=== PATIENT | female | born 1955 | race Caucasian/White ===

== ENCOUNTER 2018-04-12 11:49 | Inpatient (IN) | payer OTHER ==
[~2018-04-12] VITALS: Ht 165.1 cm; Wt 83.2 kg
[~2018-04-12 11:49] MED LIST: CEFAZOLIN 1 GM/50 ML (PMX) 50 ML IVPB SCH; SOD CHLORIDE 0.9% 1,000 ML IV ONE; TRIA1CAP44
[2018-04-13] VITALS (17 sets, daily range): BP systolic 114–155; BP diastolic 62–86; PULSE 66–79; RESP 15–28; Ht 165.1 cm; Wt 83.2 kg
[2018-04-13] MEDS ORDERED: GLYCOPYRROLATE 0.4 MG INJ ONE (07:00)
[2018-04-13] MEDS ORDERED: DESFLURANE 15 MIN ONE (07:00)
[2018-04-13] MEDS ORDERED: NEOSTIGMINE 3 MG/3 ML SYRINGE ONE (07:00)
[2018-04-13] MEDS ORDERED: AMLO-147 PO (12:01)
[2018-04-13] MEDS ORDERED: METH-493 PO (12:03)
--- NOTE | 2018-04-13 15:15 | PREAC ---
Date/Time of Note Date/Time of Note DATE: 04/13/18 TIME: 15:14 Anesthesia Eval and Record Evaluation Time Pre-Procedure Interview DATE: 04/13/18 TIME: 15:14 Age 62 Sex female NPO: 8 hrs Preoperative diagnosis L breast mass Planned procedure L radical mastectomy Past Medical History Past Medical History: Includes Cardio: HTN Endo: Hyperthyroid GI: Obesity Surgery & Anesthesia Issues No known issue Meds Anticoagulation: No Beta Earl within 24 hr: No Reason Beta Earl not given: Pt. not on B-Earl Reported Medications Methimazole* (Methimazole*) 5 Mg Tablet, 5 MG PO DAILY, TAB 04/13/18 Amlodipine Besylate* (Amlodipine Besylate*) 10 Mg Tablet, 10 MG PO DAILY, #30 TAB 04/13/18 Discontinued Reported Medications Triamterene-HCTZ (Triamterene-HCTZ) 1 Cap Capsule 07/08/10 Current Medications Influenza Virus Vaccine Quadrival (Fluzone) 0.5 ml ONCE ONCE IM* ; Start 04/14/18 at 10:00; Stop 04/14/18 at 10:01 Meds reviewed: Yes Allergies Coded Allergies: No Known Allergy (Verified , 04/13/18) Allergies Reviewed: Yes Labs/Studies Labs Reviewed: Reviewed by anesthesiologist test: Negative Studies: ECG Pre-procedure Exam Airway: Adequate mouth opening, Adequate thyromental dist Mallampati: Mallampati II Teeth: Normal Lung: Normal Heart: Normal ASA Physical Status ASA physical status: 3 Emergency: None Planned Anesthetic General/MAC: ETT Pre-operative Attestations Prior to commencing anesthesia and surgery, the patient was re-evaluated, there was verification of: *The patient's identity *The results of appropriate recent lab work and preoperative vital signs *The above evaluation not changing prior to induction *Anesthetic plan, risk benefits, alternative and complications discussed with patient/family; questions answered; patient/family understands, accepts and wishes to proceed. RENAN ROBERTS Apr 13, 2018 15:15
[2018-04-13] MEDS ORDERED: MIDAZOLAM 1 MG/ML 2 ML INJ ONE (15:16)
[2018-04-13] MEDS ORDERED: FENTAnyl 50 MCG/ML VIAL ONE (15:27)
[2018-04-13] MEDS ORDERED: ALBUTEROL 0.083% (NEB) 2.5 MG/3 ML AMP HHN PRN (15:30)
[2018-04-13] MEDS ORDERED: MEPERIDINE 25 MG INJ IV PRN (15:30)
[2018-04-13] MEDS ORDERED: FENTAnyl 50 MCG/ML VIAL IV PRN ×2 (15:30)
[2018-04-13] MEDS ORDERED: DIPHENHYDRAMINE 50 MG INJ IV PRN (15:30)
[2018-04-13] MEDS ORDERED: HYDROmorphONE 1 MG/5 ML IV SYRINGE IV PRN ×3 (15:30)
[2018-04-13] MEDS ORDERED: METOCLOPRAMIDE 10 MG INJ IV PRN (15:30)
[2018-04-13] MEDS ORDERED: ONDANSETRON 4 MG INJ IV PRN ×2 (15:30→17:00)
[2018-04-13] MEDS ORDERED: CEFAZOLIN 1 GM INJ ONE (15:47)
[2018-04-13] MEDS ORDERED: DEXAMETHASONE 4 MG/ML 1 ML INJ ONE (15:47)
[2018-04-13] MEDS ORDERED: ONDANSETRON 4 MG INJ ONE (15:47)
[2018-04-13] MEDS ORDERED: SUGAMMADEX SODIUM 200 MG/2 ML VIAL IV ONE (15:47)
[2018-04-13] MEDS ORDERED: ROCURONIUM 50 MG INJ ONE (15:47)
[2018-04-13] MEDS ORDERED: SUCCINYLCHOLINE CHLORIDE 100 MG/5 ML SYG IV ONE (15:47)
[2018-04-13] MEDS ORDERED: LIDOCAINE 100 MG SYRINGE ONE (15:47)
[2018-04-13] MEDS ORDERED: PROPOFOL 20 ML ONE (15:47)
--- NOTE | 2018-04-13 16:32 | SIPON ---
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
--- NOTE | 2018-04-13 16:38 | PAC ---
Date/Time of Note Date/Time of Note DATE: 04/13/18 TIME: 16:38 Post-Anesthesia Notes Post-Anesthesia Note Last documented vital signs Vital Signs Date Temp Pulse Resp B/P (MAP) Pulse Ox O2 O2 Flow FiO2 Time Delivery Rate 04/13/18 98.6 16:36 Activity: WNL Respiratory function: WNL Cardiovascular function: WNL Mental status: Baseline Pain reasonably controlled: Yes Hydration appropriate: Yes Nausea/Vomiting absent: Yes RENAN ROBERTS Apr 13, 2018 16:38
[2018-04-13] MEDS ORDERED: morphine 2 MG INJ IV PRN (17:00)
[2018-04-13] MEDS: D5W-0.45 NACL + KCL 20 MEQ 1,000 ML IV SCH (18:53)
--- NOTE | 2018-04-13 19:15 | OPR ---
DATE OF OPERATION: 04/13/2018 PREOPERATIVE DIAGNOSIS: Multicentric and locally advanced left breast cancer. POSTOPERATIVE DIAGNOSIS: Multicentric and locally advanced left breast cancer. OPERATION PERFORMED: Left modified radical mastectomy. ANESTHESIA: General. ANESTHESIOLOGIST: Moe Trujillo MD SURGEON: Ted Saagstume MD [employer] ROBOTICIST: Jozef Stewart MD INDICATIONS FOR PROCEDURE: The patient is an unfortunate 62-year-old female who underwent screening mammography and ultrasonography and was found to have suspicious lesions in 2 different sites in the left breast. Core biopsy confirmed cancer in both lesions. She also underwent biopsy of enlarged le ft axillary lymph node which was also positive for metastatic disease. She was counseled as to need for left modified radical mastectomy. She consented and was scheduled for surgery. DESCRIPTION OF PROCEDURE: The patient was brought to the operating theater, placed under general ane sthesia. The left breast and axillary region were prepped and draped in usual sterile fashion. Plan rhett elliptical incision was demarcated widely around the nipple areolar complex and significant amoun t of the overlying skin of the breast. The incision was carried out with 15-blade scalpel. Subcutan eous tissue was dissected with cautery. The skin edges were then elevated with Allis Matt clamps. Skin flaps were then created using cautery, first superiorly to the clavicle, then medially to the st ernal border, inferiorly to the inframammary fold and then laterally until the latissimus dorsi muscl e was identified throughout its course. Mastectomy then took place from medial to lateral using caut ivana at the border of the pectoralis major muscle, the pectoralis minor muscle was identified. Clavip ectoral fascia was incised with blunt dissection along the chest wall. The long thoracic nerve was i dentified and kept out of harm's way. More superiorly, the axillary vein was identified, dissected f rom medial to lateral. The thoracodorsal neurovascular bundle was identified, dissected throughout i ts course and kept out of harm's way. Node bearing tissue between the 2 nerves was then resected usi ng the LigaSure device. Final connective tissue attachments to latissimus dorsi muscle were transect ed with cautery. Specimen was oriented, sent for permanent pathologic analysis. Dr. Sagastume inspected the axillary region and appeared to be some additional enlarged lymph nodes that were separately res ected using LigaSure device and sent for permanent pathologic analysis. The wound was then irrigated . Minimal bleeding was controlled with cautery. Two #10 flat Luis Eduardo-Oconnor drains were then brought through the left mid axillary line. One was cut to size and laid within the axilla. The other was cut to size and laid over the pectoralis major muscle. Both drains were secured in place with 2-0 ny yadi sutures in standard fashion. The skin was then reapproximated with deep dermal layer of 4-0 Vicr yl sutures, followed by final skin approximation with skin eugenie. The patient tolerated procedure well. The estimated blood loss was approximately 50 mL. There were no complications. The patient w as transported in stable condition to the recovery room where circumferential compression dressing wa s applied. Dictated By: TED SAGASTUME MD TL/CAMERON Conf#: [id number] DID#: [id number] CC: REDDY SEARS MD;*EndCC*
[2018-04-13] MEDS: ACETAMINOPHEN 1000MG/100ML IV 100 ML IVPB PRN (20:04)
--- NOTE | 2018-04-13 21:50 | HP ---
DATE OF ADMISSION: 04/13/2018 CHIEF COMPLAINT AND HISTORY OF PRESENT ILLNESS: The patient is a 62-year-old female with a history o f hypertension and hyperthyroidism and is also status post total abdominal hysterectomy and bilateral salpingectomy. She was seen by Dr. Kumar as an outpatient for abnormal mammogram. The patient was noted to have a suspicious lesion in the left breast. Subsequently underwent ultrasound-guided core biopsy, which revealed probable intraductal papilloma; however, recommendation of the pathologist was for complete excision. The patient was brought in to hospital today and underwent excisional biopsy of the left breast. Due to postoperative pain, the patient is being admitted for further evaluation and management. The patient denied any history of headache, dizziness, syncope. No history of feve r or chills. No history of nausea, vomiting. No history of abdominal pain. No history of focal wea kness. No history of cough. REVIEW OF SYSTEMS: A total of 10 systems reviewed, all pertinent positive and negative findings have been described in HPI. Rest of the systems unremarkable. PAST MEDICAL HISTORY: As stated above. In addition, the patient also has history of . PAST SURGICAL HISTORY: None. FAMILY HISTORY: The patient's mother had uterine cancer. One of the sisters has breast cancer. SOCIAL HISTORY: No smoking, no alcohol. PHYSICAL EXAMINATION: GENERAL: The patient is awake, alert, fairly oriented. VITAL SIGNS: Temperature 98.6, pulse 69, respirations 17, blood pressure 140/75, O2 saturation 97% o n room air. HEENT: No eye discharge or redness. Conjunctivae and lids are normal. Oropharynx clear. NECK: Supple. No mass or thyromegaly. CHEST: Fairly clear. CARDIOVASCULAR: S1, S2 normal, no murmur. ABDOMEN: Soft, nondistended and nontender. EXTREMITIES: No leg edema. NEUROLOGIC: The patient is awake, alert, fairly oriented with no gross focal deficit. LABORATORY DATA: Pending. IMPRESSION: 1. Probable left breast intraductal papilloma, status post localized excisional biopsy of the left b reast. 2. Hypertension. 3. Hyperthyroidism. PLAN: The patient admitted on medical floor. The patient started on clear liquid diet, which will b e advanced as tolerated. The patient will be given IV fluid and for pain control, the patient will b e started on Tylenol, [place] and IV morphine depending upon severity of the pain. Will resume Norvasc for hypertension and methimazole for hyperthyroidism. The patient will have SCD for DVT prophylaxis . If patient continues to do well, she will be discharged home tomorrow. Dictated By: REDDY [place]/CAMERON Conf#: [id number] DID#: [id number] CC: DONNA KUMAR MD;*EndCC*
[2018-04-14] MEDS ORDERED: morphine SULFATE/PF (2 MG/2 ML) SYG IV PRN (00:11)
[2018-04-14] MEDS: D5W-0.45 NACL + KCL 20 MEQ 1,000 ML IV SCH ×2 (00:32→02:16)
[2018-04-14 00:33] VITALS: BP 128/70; PULSE 74; RESP 20
[2018-04-14] MEDS: ACETAMINOPHEN 1000MG/100ML IV 100 ML IVPB PRN ×2 (02:08→10:49)
[2018-04-14] MEDS ORDERED: METHIMAZOLE 5 MG TAB PO SCH ×2 (07:20→09:00)
[2018-04-14 08:00] VITALS: BP 125/70; PULSE 88; RESP 18
[2018-04-14] MEDS ORDERED: AMLODIPINE 10 MG TAB PO SCH (09:00)
[2018-04-14 14:00] VITALS: BP 120/77; PULSE 65; RESP 18
--- NOTE | 2018-04-14 14:45 | DS ---
Date/Time of Note Date/Time of Note DATE: 04/14/18 TIME: 14:44 Discharge Summary Admission/Discharge Info Admit Date/Time Apr 13, 2018 at 11:32 Discharge Date/Time Discharge Diagnosis 1. Probable left breast intraductal papilloma, status post localized excisional biopsy of the left breast. 2. Hypertension. 3. Hyperthyroidism. Patient Condition: Stable Hospital Course stable Home Meds Active Scripts Docusate Sodium* (Colace*) 100 Mg Capsule, 100 MG PO DAILY, #20 CAP Prov:[facility] 04/14/18 Hydrocodone/Acetaminophen ([place] 5-325 Tablet) 1 Each Tablet, 1 EACH PO Q6 for 14 Days, TAB Prov:[facility] 04/14/18 Reported Medications Methimazole* (Methimazole*) 5 Mg Tablet, 5 MG PO DAILY, TAB 04/13/18 Amlodipine Besylate* (Amlodipine Besylate*) 10 Mg Tablet, 10 MG PO DAILY, #30 TAB 04/13/18 Primary Care Provider Not On Staff Doctor Pending Labs Laboratory Tests Test 04/14/18 07:37 Lab Scanned Report [facility] [id number] [facility] Apr 14, 2018 14:45
--- NOTE | 2018-04-14 14:56 | PDOCDIS ---
Discharge Instructions DIAGNOSIS Discharge Diagnosis 1. Probable left breast intraductal papilloma, status post localized excisional biopsy of the left breast. 2. Hypertension. 3. Hyperthyroidism. CONDITION [id number] Patient Condition: [id number] Stable HOME CARE INSTRUCTIONS: [id number] Diet Instructions: [id number] Regular ACTIVITY: [id number] Activity Restrictions: [id number] Slowly Increase Activity Rest between Activity Avoid heavy lifting Do not Drive Do not operate Machinery Avoid Heavy Housework [id number] Bathing Restrictions: [id number] Sponge Bath FOLLOW UP/APPOINTMENTS Follow-up Plan FU with PMD x 1 week FU with surgery as recommended Call 911 or go to the nearest hospital if symptoms get worse- patient verbalized understanding discharge instructions. Plan dw Dr Ortega /staff [facility] Apr 14, 2018 14:56
[2018-04-14] MEDS ORDERED: HYDR-4011 PO (14:59)
[2018-04-14] MEDS ORDERED: DOCU-144 PO (14:59)
--- NOTE | 2018-04-14 19:35 | PN ---
DATE: 04/14/2018 Postop day #1 status post left breast modified radical mastectomy for invasive cancer of left breast multicentric. SUBJECTIVE: No complaint. Pain is under control. OBJECTIVE: GENERAL: Awake, alert, oriented x3. VITAL SIGNS: Temperature maximum 98.2, heart rate 65, respiration 18, blood pressure 120/77, saturat ion 99% on room air. HEART: Regular. LUNGS: Clear. ABDOMEN: Soft. Dressing is intact and not too tight. Two Luis Eduardo-Oconnor drains in place. They have been draining 80 mL and 75 mL fluid since the operation until today morning at 7:00 which is mostly serosanguineous. EXTREMITIES: The patient has full range of motion of the upper extremity. LABORATORY DATA: No new labs today. PLAN: The patient and the family, and her daughter, were instructed on care of the Luis Eduardo-P ratt drains, how to empty them, how to record them, and to record them on a piece of paper every nigh t and then when the go to follow up with Dr. Kumar' office to take the paper with them. All the ques tions were answered. Her prescription for pain will be given to the patient. Dictated By: PATI JOHNSON MD PS/NTS Conf#: [id number] DID#: [id number] CC: DONNA KUMAR MD;*EndCC*
== END 2018-04-14 15:45 | disposition home or self-care (01) | DRG 580 ==
LOC: EDSTATUS 13:30 → REC 04-13 11:32 → MS1 04-13 18:10
PROVIDERS: ADMIT Surgery Surgical Oncology; ATTEND Surgery Surgical Oncology
PROC: 07B60ZX Excision of Left Axillary Lymphatic, Open Approach, Diagnostic (ICD-10-PCS; 2018-04-13)
PROC: 0HTU0ZZ Resection of Left Breast, Open Approach (ICD-10-PCS; principal; 2018-04-13 15:00)
DX: C50.912 Malignant neoplasm of unspecified site of left female breast (principal); C77.3 Secondary and unspecified malignant neoplasm of axilla and upper limb lymph nodes; E05.90 Thyrotoxicosis, unspecified without thyrotoxic crisis or storm; I10 Essential (primary) hypertension; Z90.710 Acquired absence of both cervix and uterus; Z80.3 Family history of malignant neoplasm of breast; Z80.49 Family history of malignant neoplasm of other genital organs
CPT/HCPCS: 88307; J0131; J0690; J1100; J1170; J2001; J2250; J2274; J2405; J2710; J3010; J3480; J7030